=== PATIENT | male | born 1935 | race Caucasian/White ===

== ENCOUNTER 2024-02-21 11:33 | Emergency (ER) | payer OTHER ==
[~2024-02-21] VITALS: Ht 182.9 cm; Wt 65.0 kg
[2024-02-21 11:57] VITALS: TEMP 97.6
[2024-02-21 11:58] VITALS: O2SAT 92
--- NOTE | 2024-02-21 12:00 | ED.PDOC ---
SOB-HPI HPI Comments 88 year old HILLARYA presents to the ED with chief complaint of SOB. EMS reports that patient is coming from a shelter facility with reported SOB and low O2 saturation. EMS relays that despite the patient having a DNR in place, patient's son wanted the patient transported to the ED. EMS states patient was given a breathing treatment of Albuterol and Atrovent on route along with an 18g IV placed. Patient notes his throat hurts when he swallows, finding it difficult to do so. Patient denies any chest pain, fever, chills, cough, N/V, dizziness, or weakness. Time Seen by MD: 11:50 Reviewed notes: Nurses Notes, Medications, Allergies Information Source: Patient Mode of Arrival: Ambulatory Severity: Moderate Timing: Hours Duration: Since onset Context: At Rest PE Risk Factors: None History of: CHF Prehospital treatment: Breathing Tx, Oxygen Modifying Factors: Nothing Associated Signs and Symptoms: Sore Throat Past Medical History PAST MEDICAL HISTORY: CHF, High Lipids, HTN, Seizures Surgical History: Denies all surgeries Family History Family History: Reviewed,noncontributory to illness Social History Smoker: Non-Smoker Alcohol: Denies ETOH Use Drugs: Denies Drug Use Lives In: Home Constitutional: denies: chills, diaphoresis, fatigue, fever, malaise, sweats, weakness, others EENTM: reports: throat pain; denies: blurred vision, double vision, ear bleeding, ear discharge, ear drainage, ear pain, ear ringing, eye pain, eye redness, hearing loss, mouth pain, mouth swelling, nasal discharge, nose bleeding, nose congestion, nose pain, photophobia, tearing, throat swelling, voice changes, others Respiratory: reports: shortness of breath; denies: cough, hemoptysis, orthopnea, SOB at rest, SOB with excertion, stridor, wheezing, others Cardiovascular: denies: chest pain, dizzy spells, diaphoresis, Dyspnea on exertion, edema, irregular heart beat, left arm pain, lightheadedness, palpitations, PND, syncope, others Gastrointestinal: denies: abdomen distended, abdominal pain, blood streaked bowels, constipated, diarrhea, dysphagia, difficulty swallowing, hematemesis, melena, nausea, poor appetite, poor fluid intake, rectal bleeding, rectal pain, vomiting, others Genitourinary: denies: burning, dysuria, flank pain, frequency, hematuria, incontinence, penile discharge, penile sore, pain, testicle pain, testicle swelling, urgency, others Neurological: denies: dizziness, fainting, headache, left sided numbness, left sided weakness, numbness, paresthesia, pre-existing deficit, right sided numbness, right sided weakness, seizure, speech problems, tingling, tremors, weakness, others Musculoskeletal: denies: back pain, gout, joint pain, joint swelling, muscle pain, muscle stiffness, neck pain, others Integumetry: denies: bruises, change in color, change in hair/nails, dryness, laceration, lesions, lumps, rash, wounds, others Allergic/Immunocompromised: denies: Difficulty Healing, Frequent Infections, Hives, Itching, others Hematologic/Lymphatic: denies: anemia, blood clots, easy bleeding, easy bruising, swollen glands, others Endocrine: denies: excessive hunger, excessive sweating, excessive thirst, excessive urination, flushing, intolerance to cold, intolerance to heat, unexplained weight gain, unexplained weight loss, others Psychiatric: denies: anxiety, bipolar disorder, depression, hopeless, panic disorder, schizophrenia, sleepless, suicidal, others All Other Systems: Reviewed and Negative Physical Exam General Appearance: Cachectic, Moderate Distress, Normal HEENT: Normal ENT Inspection, PERRL/EOMI Neck: Full Range of Motion, Non-Tender, Normal, Normal Inspection Respiratory: Chest Non-Tender, Decreased Breath Sounds (Diminished breath sounds bilaterally), Lungs Clear, No Accessory Muscle Use, Respiratory Distress (Mild respiratory distress) Cardiovascular: No Edema, No JVD, No Gallop, Normal Peripheral Pulses, Systolic Murmur (Grad 2/6 systolic murmur), Other (Irregularly irregular) Breast Exam: Deferred Gastrointestinal: No Organomegaly, Non Tender, No Pulsatile Mass, Normal Bowel Sounds, Soft Genitalia: Deferred Pelvic: Deferred Rectal: Deferred Extremities: No calf tenderness, Normal capillary refill, Normal inspection, Normal range of motion, Non-tender, No pedal edema Musculoskeletal : Apperance: Normal Neurologic: Alert, lease broker II-XII nml as Tested, No Motor Deficits, Normal Affect, Normal Mood, No Sensory Deficits Cerebellar Function: Normal Reflexes: Normal Skin: Dry, Normal Color, Warm Lymphatic: No Adenopathy Was a procedure done? Was a procedure done?: No Differential Dx Differential Diagnosis: CHF, Pneumonia, Respiratory Distress, URI X-Ray, Labs, Meds, VS Vital Signs Date Time Temp Pulse Resp B/P (MAP) Pulse Ox O2 Delivery O2 Flow Rate FiO2 02/21/24 14:00 84 24 74/42 (53) 91 02/21/24 11:58 92 Nasal Cannula* 6 44 02/21/24 11:57 97.6 79 29 78/38 (51) 92 97.6 02/21/24 11:52 98.9 65 32 91/49 (63) 80 02/21/24 11:43 76 Lab Test 02/21/24 12:49 02/21/24 12:10 Range/Units Troponin I High Sensitivity 31 32 </=54 ng/L White Blood Count 12.4 H 4.4-10.8 10^3/uL Red Blood Count 3.09 L 4.5-5.90 10^6/uL Hemoglobin 9.0 L 13.5-17.5 g/dL Hematocrit 28.4 L 41.0-53.0 % Mean Corpuscular Volume 91.9 80.0-100.0 fL Mean Corpuscular Hemoglobin 29.0 28.0-32.0 pg Mean Corpuscular Hemoglobin Concent 31.6 L 32.0-36.0 g/dL Red Cell Distribution Width 18.2 H 11.8-14.3 % Platelet Count 189 140-450 10^3/uL Mean Platelet Volume 8.1 6.9-10.8 fL Neutrophils (%) (Auto) 86.4 H 37.0-80.0 % Lymphocytes (%) (Auto) 6.4 L 10.0-50.0 % Monocytes (%) (Auto) 6.9 0.0-12.0 % Eosinophils (%) (Auto) 0.0 0.0-7.0 % Basophils (%) (Auto) 0.3 0.0-2.0 % Neutrophils # (Auto) 10.7 H 1.6-8.6 10 ^3/uL Lymphocytes # (Auto) 0.8 0.4-5.4 10 ^3/uL Monocytes # (Auto) 0.9 0-1.3 10 ^3/uL Eosinophils # (Auto) 0 0-0.8 10 ^3/uL Basophils # (Auto) 0 0-0.2 10 ^3/uL Nucleated Red Blood Cells 0.0 % Sodium Level 144 136-145 mmol/L Potassium Level 3.7 3.5-5.1 mmol/L Chloride Level 107 98-107 mmol/L Carbon Dioxide Level 30 20-31 mmol/L Anion Gap 7 5-15 Blood Urea Nitrogen 31 H 9-23 mg/dL Creatinine 1.72 H 0.700-1.30 mg/dL Glomerular Filtration Rate Calc 38 >90 mL/min BUN/Creatinine Ratio 18.0 10.0-20.0 Serum Glucose 98 74-106 mg/dL Calcium Level 8.6 L 8.7-10.4 mg/dL Total Bilirubin 0.8 0.2-1.0 mg/dL Aspartate Amino Transferase (AST) 24 13-40 U/L Alanine Aminotransferase (ALT) < 9 7-40 U/L Alkaline Phosphatase 58 46-116 U/L B-Type Natriuretic Peptide 247.10 0-100 pg/mL Total Protein 6.6 5.7-8.2 g/dL Albumin 2.8 L 3.2-4.8 g/dL 1151: Spoke to Romel (patient's son) regarding the patient's care. Romel notes that despite the patient having a DNR, patient will usually have fluid in his lungs that needs to be drained out and wishes to have him evaluated for that today. Chest XR: FINDINGS: Lines and Tubes: None Lungs: Mild pulmonary congestion. Pleura: No effusion. No pneumothorax. Cardiomediastinal contours: Cardiomegaly. Bones: No acute osseous abnormality. IMPRESSION: 1. Mild pulmonary congestion. Images Reviewed?: Images reviewed and evaluated by me Time of 1ST Reevaluation: 12:50 Reevaluation 1ST: Unchanged Time of 2ND Reevaluation: 12:03 Reevaluation 2ND: Unchanged (I discussed the case with patient's son who states that 'occasionally he gets fluid on his lungs and they help take the fluid off' to make him more comfortable) Time of 3RD Reevaluation: 01:00 Reevaluation 3RD: Improved (Patient is comfort measures only, patient is c omfortable, no respiratory distress, no pain, I discussed the case with son Romel who agrees to have patient return to hospice) Patient Education/Counseling: Diagnosis, Treatment Family Education/Counseling: No Family Present Departure 1 Departure Time of Disposition: 14:00 Impression: Primary Impression: Comfort measures only status Additional Impression: Dehydration Disposition: 51 HOSPICE/MEDICAL FACILITY Condition: Stable Discharged With: Self, Relative, Legal Guardian Critical Care Note Critical Care Time?: No Stability Stability form required: No Heart Score Heart Score: Heart Score Response (Comments) Value History N/A 0 EKG N/A 0 Age N/A 0 Risk Factors N/A 0 Troponin N/A 0 Total 0 I personally scribed for JENNI HARPER MD ([email or web address]) on 02/21/24 at 12:00. Electronically submitted by Rolando Cardenas ([email or web address]). I personally scribed for JENNI HARPER MD ([email or web address]) on 02/21/24 at 13:14. Electronically submitted by Rolando Cardenas ([email or web address]). JENNI HARPER MD Feb 21, 2024 12:00
[2024-02-21 12:28] LABS: Basophils # (auto) 0 10 ^3/uL (0-0.2); Basophils % (auto) 0.3 % (0.0-2.0); Eosinophils # (auto) 0 10 ^3/uL (0-0.8); Hematocrit 28.4 % (41.0-53.0); Lymphocytes # (auto) 0.8 10 ^3/uL (0.4-5.4); Lymphocytes % (auto) 6.4 % (10.0-50.0); Mean Corpuscular Hgb Conc. 31.6 g/dL (32.0-36.0); Mean Corpuscular Volume 91.9 fL (80.0-100.0); Monocytes # (auto) 0.9 10 ^3/uL (0-1.3); Monocytes % (auto) 6.9 % (0.0-12.0); Neutrophils # (auto) 10.7 10 ^3/uL (1.6-8.6); Neutrophils % (auto) 86.4 % (37.0-80.0); Platelet Count (auto) 189 10^3/uL (140-450); Red Blood Cells 3.09 10^6/uL (4.5-5.90); Red Cell Distribution Width 18.2 % (11.8-14.3); White Blood Cell 12.4 10^3/uL (4.4-10.8)
[2024-02-21 12:37] LABS: Alkaline Phosphatase 58 U/L (46-116); Anion Gap 7 (5-15); Aspartate Aminotransferase 24 U/L (13-40); Carbon Dioxide 30 mmol/L (20-31); Glucose 98 mg/dL (74-106); Potassium 3.7 mmol/L (3.5-5.1); Sodium 144 mmol/L (136-145)
[2024-02-21 12:38] LABS: Alanine Aminotransferase < 9 U/L (7-40); Albumin 2.8 g/dL (3.2-4.8); Bilirubin, Total 0.8 mg/dL (0.2-1.0); Blood Urea Nitrogen 31 mg/dL (9-23); Calcium 8.6 mg/dL (8.7-10.4); Chloride 107 mmol/L (98-107); Total Protein 6.6 g/dL (5.7-8.2)
--- NOTE | 2024-02-21 12:58 | DVH ---
CHEST RADIOGRAPH Indication: SOB Technique: Single frontal view of the chest was obtained Comparison: None FINDINGS: Lines and Tubes: None Lungs: Mild pulmonary congestion. Pleura: No effusion. No pneumothorax. Cardiomediastinal contours: Cardiomegaly. Bones: No acute osseous abnormality. IMPRESSION: 1. Mild pulmonary congestion.
[2024-02-21] MEDS: SODIUM CHLORIDE 0.9% 1,000 ML IV ONE (13:00)
--- NOTE | 2024-02-21 13:34 | ECG ---
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: gp : [id number] Requested By: JENNI HARPER Order Number: [id number] Reading MD: Kin Boston Measurements Intervals [place] Rate: 76 P: 0 WA: 51 QRS: 75 QRSD: 117 T: 89 QT: 423 QTc: 476 Interpretive Statements Sinus rhythm Supraventricular bigeminy Short [place] interval Nonspecific intraventricular conduction delay Anteroseptal infarct, age indeterminate Repol abnrm suggests ischemia, anterolateral ST elevation, consider inferior injury Artifact in lead(s) I,II,aVR,aVL and baseline wander in lead(s) II,III,aVF Electronically Signed On 02-21-2024 14:18:38 PST by Kin Boston Please click the below link to view image of tracing.
[2024-02-21 14:00] VITALS: BP 74/42; PULSE 84; RESP 24; O2SAT 91
== END 2024-02-21 15:45 | disposition home or self-care (01) ==
LOC: ER 11:33 → EDBD 11:33 → ER 15:45
DX: E86.0 Dehydration (principal); I11.0 Hypertensive heart disease with heart failure; I50.9 Heart failure, unspecified; E78.5 Hyperlipidemia, unspecified; Z51.5 Encounter for palliative care
CPT/HCPCS: 36415; 71045; 80053; 83880; 84484; 85025; 93005